=== PATIENT | female | born 1990 | race Caucasian/White ===

== ENCOUNTER 2016-11-13 17:28 | Emergency (ER) | payer OTHER ==
[2016-11-13] MEDS ORDERED: NO MEDICATIONS (17:30)
== END 2016-11-13 17:58 | disposition home or self-care (01) ==
LOC: SED 17:28
DX: T81.4XXA Infection following a procedure, initial encounter (principal); F31.9 Bipolar disorder, unspecified
CPT/HCPCS: 99282